=== PATIENT | female | born 1985 | race Two or more races ===

== ENCOUNTER 2022-12-22 10:00 | Inpatient (IN) | payer OTHER ==
[~2022-12-22] VITALS: Ht 30.5 cm; Wt 0.5 kg
[2022-12-22 13:35] VITALS: BP 106/73
[2022-12-22] MEDS ORDERED: SODIUM CHLORIDE 0.9% 1,000 ML IV SCH (15:00)
[2022-12-22] MEDS ORDERED: HYDROcodone-ACET 5/325MG TAB PO PRN (15:00)
[2022-12-22] MEDS ORDERED: MORPHINE SULFATE INJ 2 MG/ml SYRG IV PRN (15:00)
[2022-12-22] MEDS ORDERED: ONDANSETRON HCL 4 MG/2 ML VIAL IV PRN (15:00)
[2022-12-22] MEDS ORDERED: TAMSULOSIN HYDROCHLORIDE 0.4 MG CAP PO ONE (15:15)
[2022-12-22] MEDS ORDERED: MANNITOL FTV 25% 12.5 GM/50 ML 50 ML IV ONE (15:30)
[2022-12-22] MEDS ORDERED: PREN-96 PO (15:50)
[2022-12-22] MEDS ORDERED: cefTRIAXone 1GM/50ML D5W 50 ML IV SCH (15:59)
[2022-12-22 17:49] VITALS: BP 93/57
[2022-12-22] MEDS ORDERED: TAMSULOSIN HYDROCHLORIDE 0.4 MG CAP PO SCH (18:00)
[2022-12-22 20:30] VITALS: BP 110/67
== END 2022-12-22 20:30 | disposition home or self-care (01) | DRG 694 ==
LOC: WEST WING 13:49
PROVIDERS: ADMIT Nurse Practitioner Family; ATTEND Internal Medicine
DX: N13.2 Hydronephrosis with renal and ureteral calculous obstruction (principal); Z87.442 Personal history of urinary calculi; R31.9 Hematuria, unspecified
CPT/HCPCS: 76775; 87081; G0378; J0696